=== PATIENT | female | born 1965 | race Caucasian/White ===

== ENCOUNTER 2016-06-04 11:18 | Inpatient (IN) ==
[2016-06-04] MEDS ORDERED: VANCOMYCIN 1 GM/NS 250 ML IV ONE (11:47)
--- NOTE | 2016-06-04 11:51 | PROVIDER DOCUMENTATION ---
HPI-Rash/Wound/ReCheck - General Chief Complaint: Sores/Lesions Stated Complaint: LEGS CELLULITIS Time Seen by Provider: 06/04/16 11:39 Source: patient Allergies/Adverse Reactions: Allergies Allergy/AdvReac Type Severity Reaction Status Date / Time No Known Allergies Allergy Verified 04/09/16 03:57 Home Medications: Home Medication List Medication Instructions Recorded Confirmed Last Taken Type Methadone 115 mg PO DAILY 12/14/15 04/09/16 04/08/16 09:00 History Cephalexin [Keflex] 500 mg PO TID #21 capsule 04/09/16 Unknown Rx - History of Present Illness-Dermatology Nature of Presenting Problem: patient is a 51 y/o F that presents to the ER with bilateral lower extremity swelling and wounds to legs. patient has history of same. Denies fever/chills, shortness of breath, or chest pain. Has drainage to left lateral ulcer Location: reports: lower extremity Quality: reports: painful Severity: reports: moderate Onset/Duration: reports: unsure Timing: reports: still present, constant Context/Associated Symptoms: reports: lesion, swelling/mass/lumps. denies: blisters, fever Locality of Occurance: Home Similar Symptoms Previously?: Yes Recently seen or treated by another doctor?: No Review of Systems - Adult - REVIEW OF SYSTEMS - ADULT Constitutional: denies: chills, fever Eyes: reports: no symptoms reported Ears, Nose, Mouth & Throat: reports: no symptoms reported Cardiovascular: reports: edema. denies: chest pain, orthopnea, syncope Respiratory: denies: cough, shortness of breath, wheezing Gastrointestinal: reports: no symptoms reported Genitourinary: reports: no symptoms reported Musculoskeletal: reports: no symptoms reported Integumentary: reports: skin sores/ulcer. denies: rash Neurological: reports: no symptoms reported Psychiatric: reports: no symptoms reported Endocrine: reports: no symptoms reported Hematologic/Lymphatic: reports: no symptoms reported Allergic/Immunologic: reports: no symptoms reported All Other Systems: Reviewed and Negative Past History - Adult - PAST MEDICAL HISTORY-ADULT Review of Records: reports: Old Records Reviewed, Nursing Assessment Review, Medications Reviewed Cardiovascular: reports: cardiac disease, CHF, HTN, PVD Musculoskeletal: reports: arthritis, chronic pain Endocrine/Immune: reports: Diabetes - PRIOR SURGERIES/PROCEDURES Surgical/Procedure History: reports: appendectomy, cholecystectomy, hysterectomy , hernia repair, gastric bypass - IMMUNIZATION STATUS Childhood Immunizations: See Nurse Assessment Flu Vaccine: See Nurse Assessment - FAMILY HISTORY Family History: reviewed, not pertinent - SOCIAL HISTORY Living Situation: family Physical Exam-General - PHYSICAL EXAM-ADULT Initial Vital Signs Reviewed: Yes - CONSTITUTIONAL General Appearance: alert, no apparent distress, obese - EYES Eyes: PERRL/EOMI, pink conjunctivae - HEAD, EARS, NOSE, MOUTH & THROAT HENMT: normocephalic/atraumatic, moist mucous membranes, normal ENT inspection - NECK Neck: full range of motion, normal inspection. negative: lymphadenopathy - RESPIRATORY Respiratory: lungs clear, normal breath sounds, no respiratory distress, no accessory muscle use - CARDIOVASCULAR Cardiovascular: regular rate, rhythm, no murmur - GASTROINTESTINAL (ABDOMEN) Abdominal Exam: normal bowel sounds, non tender, soft - MUSCULOSKELETAL Extremity: no calf tenderness, normal capillary refill, erythema (chronic), pedal edema (4 plus bilateral lower) - SKIN Integumentary: erythema (chronic bilateral lower extremities), other ( superficial ulcers to bilateral lower legs, left lateral is draining) - NEUROLOGIC Neurologic: grossly normal, no motor/sensory deficits - PSYCHIATRIC Psych/Mental Status: normal mood/affect, normal thought content, normal thought process, oriented x 3 Progress - PLAN OF CARE/RESULTS Progress/Plan/Lab Results: plan of care-labs Vital Signs Temp Pulse Resp BP Pulse Ox 06/04/16 11:24 98.4 F 64 18 140/68 100 No Known Allergies Allergy (Verified 04/09/16 03:57) Methadone 115 mg PO DAILY 12/14/15 Cephalexin [Keflex] 500 mg PO TID #21 capsule 04/09/16 Laboratory 06/04/16 06/04/16 06/04/16 12:05 12:05 12:05 WBC 6.32 RBC 3.63 L Hgb 9.8 L Hct 32.0 L MCV 88.2 MCH 27.0 MCHC 30.6 L RDW Std Deviation 14.9 H Plt Count 204 MPV 11.2 H Immature Gran % (Auto) 0.2 Neut % (Auto) 66.9 Lymph % (Auto) 23.3 Rabun % (Auto) 6.3 Eos % (Auto) 3.0 Baso % (Auto) 0.3 Immature Gran # (Auto) 0.01 Neut # (Auto) 4.23 Lymph # (Auto) 1.47 Rabun # (Auto) 0.40 Eos # (Auto) 0.19 Baso # (Auto) 0.02 Sodium 140 Potassium 3.3 L Chloride 99 Carbon Dioxide 28 Anion Gap 13 BUN 9 Creatinine 1.0 H Estimated GFR/1.73 m2 59 BUN/Creatinine Ratio 9 Glucose 108 H Calculated Osmolality 279 Calcium 9.1 Total Bilirubin 0.30 AST 14 ALT 11 Alkaline Phosphatase 124 H [id number] Pept 291 H Total Protein 8.1 Albumin 4.1 Globulin 4.0 Albumin/Globulin Ratio 1.0 Orders Category Date Time Status Saline Loc NOW Care 06/04/16 11:47 Active BLOOD CULTURE [BLDCUL] Stat Lab 06/04/16 11:47 Ordered CBC WITH DIFF [HEME] Stat Lab 06/04/16 12:05 Completed COMPREHENSIVE METABOLIC PANEL [CHEM] Stat Lab 06/04/16 12:05 Completed PRO B-NATRIURETIC PEPTIDE Stat Lab 06/04/16 12:05 Completed WOUND CULTURE INC GRAM STAIN [RM] Routine Lab 06/04/16 12:21 Ordered Vancomycin 1 gm/Ns 250 ml Med 06/04/16 11:47 Discontinued IV NOW - CONSULTS/PCP/HOSPITALIST Notification #1 *Consult/PCP/Hospitalist*: Janine (production support consultant hospitalist) Time Discussed: 13:05 Consult Disposition: Admit Departure - Departure Time of Disposition Order: 13:05 DIAGNOSIS: Cellulitis Qualifiers: Site of cellulitis: extremity Site of cellulitis of extremity: lower extremity Laterality: unspecified laterality Qualified Code(s): L03.119 - Cellulitis of unspecified part of limb Disposition: ADMITTED INPATIENT 09 Certified Medical Emergency: Emergent Condition: Stable Attestation - Scribe Verification/Attestation Scribe:: Jagdeep Allen Acting as Scribe for:: Nancy Wynne Scribe documention review:: This chart was documented by a scribe and accurately reflects the service the provider performed and the decisions made by the provider. Physician Attestation - Physician Attestation I, the provider, attest to the following statement:: Nancy Wynne Physician documentation Attestation:: This documentation recorded by the scribe accurately reflects the service I personally performed and the decisions made by me.
[2016-06-04 12:18] LABS: MANUAL DIFF NEEDED? NO
[2016-06-04 12:20] LABS: BASO% 0.3 % (0.0-0.8); EOS# 0.19 X1000 (0.0-0.7); HEMOGLOBIN 9.8 g/dL (12.0-16.0); IMM GRAN# 0.01 X1000 (0.0-0.04); IMM GRAN% 0.2 % (0.0-0.5); LYMPH# 1.47 X1000 (1.2-3.4); LYMPH% 23.3 % (20.5-51.1); MCHC 30.6 g/dL (33-37); MCV 88.2 FL (81-99); MONO% 6.3 % (1.7-9.3); MPV 11.2 FL (7.4-10.4); NEUT% 66.9 % (42.2-75.2); PLT 204 X1000 (130-400); RBC 3.63 XMIL (4.2-5.4)
[2016-06-04 12:43] LABS: ALBUMIN 4.1 g/dL (3.5-5.0); CALCIUM 9.1 mg/dL (8.8-10.2); POTASSIUM 3.3 mmol/L (3.5-5.1); TOTAL BILIRUBIN 0.3 mg/dL (0.20-1.00); TOTAL PROTEIN 8.1 g/dL (6.3-8.3)
[2016-06-04] MEDS ORDERED: TYLENOL PO PRN (15:26)
[2016-06-04] MEDS ORDERED: ZOFRAN IV PRN (15:26)
[2016-06-04] MEDS ORDERED: VANCOMYCIN IV PER PHARMACY MISC SCH (15:30)
--- NOTE | 2016-06-04 16:27 | HISTORY AND PHYSICAL ---
PRIMARY CARE PHYSICIAN: Dr. Vasquez. CHIEF COMPLAINT: Bilateral lower extremity swelling with increased redness and pain with drainage noted to the left ulcer. HISTORY OF PRESENTING ILLNESS: This is a 51-year-old female who presented to [facility] with complaints of bilateral lower extremity swelling and wounds to bilateral lower extremities. She states they have increased in swelling and pain. She is noted to have drainage to the left lateral ulcer, 4+ pitting edema, tenderness to touch, warmth to touch to bilateral lower extremities. Workup in the ER was essentially benign. She is being admitted for further evaluation and treatment. PAST MEDICAL HISTORY: Of lower extremity cellulitis, lower extremity edema, hypertension, peripheral vascular disease, diabetes type 2, chronic pain and CHF. PAST SURGICAL HISTORY: Of an appendectomy, cholecystectomy, hysterectomy, a hernia repair and gastric bypass. FAMILY HISTORY: Noncontributory. SOCIAL HISTORY: She currently lives with family. Denies any tobacco, alcohol, or illicit drug use. ALLERGIES: She has no known drug allergies. HOME MEDICATIONS: She takes Lasix 80 mg p.o. daily, hydroxyzine 10 mg p.o. q.6 hours p.r.n., methadone 115 mg p.o. daily, Zantac 150 mg p.o. daily. LABORATORY DATA: Showed a white blood cell count of 6.32, hemoglobin of 9.8, hematocrit 32, platelets 204,000. Sodium 140, potassium 3.31. Chloride 99, CO2 28, BUN of 9, creatinine 1.0, glucose 108. ProBNP of 291. REVIEW OF SYSTEMS: She denied any fever, chills, blurred vision, dizziness, chest pain, coughing, shortness of breath, constipation, diarrhea, burning or hurting with urination. She was positive for pain to bilateral lower extremities, increased edema, tenderness to touch. PHYSICAL EXAMINATION: On arrival. VITAL SIGNS: Temperature 98.4 degrees, pulse 64, respirations 18, blood pressure 140/68, saturating 100% on room air. GENERAL: This is a 51-year-old female lying in the bed, and answers questions appropriately. HEENT: Normocephalic and atraumatic. Pupils are equal, round, reactive to light. Extraocular movements are intact. Oropharynx and nares are clear. NECK: Supple. LUNGS: Clear to auscultation bilaterally with equal lung expansion and chest wall movement. HEART: With regular rate and rhythm. No murmurs, rubs, or gallops. ABDOMEN: Soft, nontender, nondistended. Bowel sounds are present x4 quadrants. EXTREMITIES: She is noted to have 4+ bilateral lower extremity edema. Erythema and tenderness to touch. Warmth to touch to the bilateral lower extremities. She is noted to have several areas of wounds most of which are scabbed over. She does have a left lateral ulcer that is draining. NEUROLOGICAL: The cranial nerves 2-12 are grossly intact. ASSESSMENT: 1. Bilateral lower extremity cellulitis. 2. Mild hypokalemia. 3. Diabetes type 2. 4. Hypertension. PLAN: She is being admitted to the medical unit at [facility]. Placed on pattern blood sugars with sliding scale insulin. Diabetic diet. We will consult wound care. Blood cultures x2 are pending. A wound culture was obtained in the ER and results are pending. Will place on vancomycin per pharmacy protocol and continue her home medications as previously identified. Zofran 4 mg IV q.4 hours p.r.n., Tylenol 650 p.o. q.4 hours p.r.n. We are going to give 40 mEq of potassium p.o. x1 today. Recheck CBC, BMP in the a.m. Dictated by JOSELITO Cantrell for Patrick Mejia MD
[2016-06-04] MEDS: HUMALOG SUBQ SCH ×2 (16:30→21:00)
[2016-06-04] MEDS ORDERED: NS 250 ML ONE (16:43)
[2016-06-04] MEDS: HYDROXYZINE PO PRN (17:05)
[2016-06-04] MEDS: VANCOMYCIN 1,500 MG in NS 250 ML IV ONE (17:05)
[2016-06-04] MEDS ORDERED: LASIX IV ONE (20:28)
[2016-06-04] MEDS ORDERED: METHADONE PO ONE (20:29)
[2016-06-05 05:49] LABS: MANUAL DIFF NEEDED? NO
[2016-06-05 05:57] LABS: BASO% 0.2 % (0.0-0.8); EOS# 0.15 X1000 (0.0-0.7); EOS% 3.3 % (0.0-10.0); HEMATOCRIT 30.8 % (37.0-47.0); HEMOGLOBIN 9.4 g/dL (12.0-16.0); LYMPH# 1.25 X1000 (1.2-3.4); LYMPH% 27.1 % (20.5-51.1); MCH 26.9 PG (27-31); MCHC 30.5 g/dL (33-37); MCV 88.3 FL (81-99); MONO# 0.47 X1000 (0.11-0.59); MONO% 10.2 % (1.7-9.3); MPV 11.6 FL (7.4-10.4); NEUT% 59.2 % (42.2-75.2); PLT 176 X1000 (130-400); RBC 3.49 XMIL (4.2-5.4)
[2016-06-05] MEDS: HUMALOG SUBQ SCH (06:10)
[2016-06-05 06:14] LABS: AGAP 6; BUN 8 mg/dL (8-22); CALCIUM 8.5 mg/dL (8.8-10.2); CHLORIDE 104 mmol/L (98-107); COSMO 281; POTASSIUM 3.3 mmol/L (3.5-5.1); SODIUM 141 mmol/L (136-145); TCO2 31 mmol/L (25-35)
[2016-06-05] MEDS: LASIX IV SCH ×3 (08:45→22:30)
[2016-06-05] MEDS: ROCEPHIN 1 GM/NS 50 ML IV SCH ×2 (08:45→10:43)
[2016-06-05] MEDS: ZANTAC PO SCH (08:45)
[2016-06-05] MEDS: METHADONE PO SCH (08:45)
[2016-06-05] MEDS ORDERED: LASIX PO SCH (09:00)
--- NOTE | 2016-06-05 09:07 | PROGRESS NOTE ---
DATE: 06/05/2016 SUBJECTIVE: The patient notes she is feeling a little bit better this morning. She had a dose of Lasix last night and has had a tremendous decrease in the swelling in her lower extremities. Denies any chest pain, palpitations. OBJECTIVE: Vital Signs: Temperature 97, Pulse 56, respiratory 18, BP 89/37 to 112/58, saturation 97% on room air. General: Patient is well developed, well nourished. She is currently in no real respiratory distress. She is awake, alert. Neck: Supple. CV: Regular rate. Chest: Relatively clear. Abdomen: Soft. Extremities: Moves all extremities. She is actually noted to have a little bit less edema in the right lower extremity with wrinkling of her skin. She has a 6 cm ring around both lower extremities that is erythematous, warm to the touch. No pus, no drainage currently. ASSESSMENT: 1. Bilateral lower extremity cellulitis. 2. Bilateral lower extremity 3+ nonpitting edema. 3. Mild hypokalemia. 4. Diabetes type 2. 5. Hypertension. 6. Obesity. 7. Gram-positive cocci on skin culture. PLAN: We will continue patient on vancomycin and Rocephin until her cultures return. We will continue IV Lasix 40 mg IV twice a day x4 doses. We will continue to follow her kidney, liver function. Continue her home medications. Further orders as needed.
[2016-06-05] MEDS: HUMALOG DOSE (PARKWAY) SUBQ SCH ×3 (11:02→20:55)
[2016-06-05] MEDS: HYDROXYZINE PO PRN ×2 (11:41→19:59)
[2016-06-05] MEDS: VANCOMYCIN 2,500 MG in NS 500 ML IV SCH (16:01)
[2016-06-06] MEDS: HYDROXYZINE PO PRN ×3 (00:44→21:56)
[2016-06-06 06:13] LABS: HEMATOCRIT 30.9 % (37.0-47.0); HEMOGLOBIN 9.2 g/dL (12.0-16.0); MCH 26.4 PG (27-31); MCHC 29.8 g/dL (33-37); MCV 88.8 FL (81-99); MPV 11.6 FL (7.4-10.4); RBC 3.48 XMIL (4.2-5.4)
[2016-06-06] MEDS: HUMALOG DOSE (PARKWAY) SUBQ SCH ×4 (06:25→21:57)
[2016-06-06 06:32] LABS: ALBUMIN 3.2 g/dL (3.5-5.0); CALCIUM 8.4 mg/dL (8.8-10.2); POTASSIUM 3.5 mmol/L (3.5-5.1); TOTAL BILIRUBIN 0.2 mg/dL (0.20-1.00); TOTAL PROTEIN 6.2 g/dL (6.3-8.3)
[2016-06-06] MEDS: ZANTAC PO SCH (08:55)
[2016-06-06] MEDS: METHADONE PO SCH (08:55)
[2016-06-06] MEDS: ROCEPHIN 1 GM/NS 50 ML IV SCH (11:14)
[2016-06-06] MEDS: LASIX IV SCH ×2 (11:59→22:45)
--- NOTE | 2016-06-06 14:11 | PROGRESS NOTE ---
DATE: 06/06/2016 SUBJECTIVE: Patient notes that she is feeling better today. She is having continued good urine output. She is having decreased swelling in her lower extremities. She denies any chest pain, palpitations. Does states that her pain medicine does not work very well at times. I would like to split her methadone up to twice a day. PHYSICAL: Vital signs: Temperature 98, pulse 64, respiratory 22, BP 86/34 to 100/44. General: Patient is awake, alert. She is in no distress. She is awake, pleasant to talk with. Speech is regular. Memory is intact. HEENT: Normocephalic, atraumatic. YENNI. Neck: Supple. CV: Regular rate. Chest: Relatively clear. Extremities: She has got decreased edema bilateral lower extremities, decreased erythema. She actually now has wrinkles in her skin. Good pulses bilaterally. DATA: CBC, CMP normal. Gram-positive cocci on wound culture. ASSESSMENT: 1. Bilateral lower extremity cellulitis with gram-positive cocci. 2. Mild hypokalemia resolved, potassium 3.5. 3. Diabetes type 2. Blood sugars are great at 109. 4. Bilateral lower extremity edema. Will continue Lasix IV for now. Continue to follow her kidney function. 5. Hypertension stable. PLAN: Will split her methadone into a.m. and p.m. doses and continue to follow. Further orders as needed.
[2016-06-06] MEDS: VANCOMYCIN 2,500 MG in NS 500 ML IV SCH (15:56)
[2016-06-06] MEDS ORDERED: METHADONE PO SCH (21:00)
[2016-06-07 06:22] LABS: HEMATOCRIT 31.6 % (37.0-47.0); HEMOGLOBIN 9.6 g/dL (12.0-16.0); MCHC 30.4 g/dL (33-37); MCV 88.8 FL (81-99); MPV 11.2 FL (7.4-10.4); RBC 3.56 XMIL (4.2-5.4)
[2016-06-07] MEDS: HUMALOG DOSE (PARKWAY) SUBQ SCH ×4 (06:24→22:01)
[2016-06-07 06:47] LABS: ALBUMIN 3.4 g/dL (3.5-5.0); CALCIUM 8.6 mg/dL (8.8-10.2); POTASSIUM 3.2 mmol/L (3.5-5.1); TOTAL BILIRUBIN 0.2 mg/dL (0.20-1.00); TOTAL PROTEIN 6.4 g/dL (6.3-8.3)
[2016-06-07] MEDS ORDERED: METHADONE PO SCH ×2 (08:28)
[2016-06-07] MEDS: ZANTAC PO SCH (08:57)
[2016-06-07] MEDS ORDERED: KLOR-CON PO ONE (10:21)
[2016-06-07] MEDS: HYDROXYZINE PO PRN ×3 (10:56→23:59)
--- NOTE | 2016-06-07 10:57 | PROGRESS NOTE ---
DATE: 06/07/2016 SUBJECTIVE: The patient notes that she is feeling much better. She is having much less pain in her lower extremities. She actually has wrinkles again. Denies any chest pains or palpitations. Denies any fevers or chills. PHYSICAL EXAMINATION: Vital Signs: Temperature 98 degrees, pulse 42, respiratory rate 20, blood pressure 102/47 to 93/34. General: Patient is a well-developed, overweight female who currently is in no respiratory distress. She is awake and alert. Neck: Supple. Cardiovascular: Regular rate. Chest: Relatively clear. Abdomen: Soft. Extremities: Moves all extremities. She is noted to have decreased erythema greatly in bilateral lower extremities. She is having decreased swelling. She has now nonpitting edema, which is an improvement. Unfortunately, she is having issues with her IV. LABORATORIES: CBC and CMP essentially normal. Potassium 3.2. ASSESSMENT: 1. Staphylococcus aureus wound culture, bilateral lower extremities. 2. Hypokalemia. 3. Diabetes, type 2. 4. Hypertension. PLAN: We will change the patient to clindamycin, as her IV has infiltrated. We will replace her potassium. We will continue on Lasix, although we will change this also to p.o. We will give her another 40 of Lasix p.o. tonight x1 dose. We will continue to follow. Hopefully, home in 1-2 days.
[2016-06-07] MEDS: CLEOCIN PO SCH ×2 (13:07→17:35)
[2016-06-07] MEDS ORDERED: LASIX PO ONE (18:00)
[2016-06-08] MEDS: HYDROXYZINE PO PRN (04:51)
[2016-06-08] MEDS: HUMALOG DOSE (PARKWAY) SUBQ SCH (06:10)
[2016-06-08 08:20] VITALS: BP 101/55
[2016-06-08] MEDS ORDERED: METHADONE PO SCH (09:00)
[2016-06-08] MEDS: CLEOCIN PO SCH (10:19)
[2016-06-08] MEDS: ZANTAC PO SCH (10:19)
--- NOTE | 2016-06-09 07:06 | DISCHARGE SUMMARY ---
ADMISSION DATE: 06/04/2016 DISCHARGE DATE: 06/08/2016 DISCHARGE DIAGNOSES: 1. Bilateral lower extremity cellulitis with methicillin-resistant Staphylococcus aureus sensitive to clindamycin. 2. Mild hypokalemia resolved. 3. Diabetes type 2. Stable. 4. Hypertension stable. 5. Chronic lower extremity edema improved. 6. Unilateral kidney. 7. History of gastric bypass. 8. Known peripheral vascular disease. 9. Congestive heart failure. CONSULTATIONS: None. PROCEDURES: None. BRIEF HOSPITAL COURSE: Patient is a 51-year-old patient of Dr. Vasquez. He presented to the emergency department with increased swelling and the erythema of her bilateral lower extremities. She had a weeping ulcer on her left lower extremity with some drainage. This was cultured and grew methicillin-resistant Staphylococcus aureus which was highly sensitive to clindamycin, vancomycin, and moderately sensitive to Bactrim. She was placed on vancomycin for the hospital course as well as IV Lasix. On discharge, she is tremendously better. Her drainage has dried up. She actually now has wrinkles on her bilateral lower extremities. She notes the pain is gone, she is able to ambulate much better. DISCHARGE: Discussed with patient Mariano chilel. Although she declined, she states that this makes her claustrophobic. Discussed with her that she also will likely need to have compression stockings as an outpatient to try to prevent this from coming back. However, I would not start compression stockings currently until this wound has healed. We will continue on clindamycin for a total of 10 days. Discussed her that she either needs probiotics or Activia Yogurt. She needs to follow with Dr. Vasquez in 1-2 weeks to reevaluate. We will go back to her home Lasix dose of 80 a.m. She will continue to take her home methadone at 1:15. No other changes. TIME SPENT: 35 minutes was spent in discharge planning and instructions.
== END 2016-06-08 13:15 | disposition home or self-care (01) | DRG 603 ==
LOC: P.ED 11:18 → P.MEDSURG 13:26
PROVIDERS: ATTEND Family Medicine
DX: L03.116 Cellulitis of left lower limb (principal); E11.51 Type 2 diabetes mellitus with diabetic peripheral angiopathy without gangrene; I11.0 Hypertensive heart disease with heart failure; I50.9 Heart failure, unspecified; Q60.0 Renal agenesis, unilateral; Z68.41 Body mass index [BMI] 40.0-44.9, adult; L97.929 Non-pressure chronic ulcer of unspecified part of left lower leg with unspecified severity; L97.919 Non-pressure chronic ulcer of unspecified part of right lower leg with unspecified severity; E11.622 Type 2 diabetes mellitus with other skin ulcer; B95.62 Methicillin resistant Staphylococcus aureus infection as the cause of diseases classified elsewhere; L03.115 Cellulitis of right lower limb; G89.29 Other chronic pain; Z98.84 Bariatric surgery status; E87.6 Hypokalemia; E66.9 Obesity, unspecified; Z79.899 Other long term (current) drug therapy; Z79.891 Long term (current) use of opiate analgesic
CPT/HCPCS: 80048; 80053; 82948; 83880; 85025; 85027; 87040; 87070; 87077; 87186; 96365; J0696; J1815; J1940; J3370; J7040; J7050; S0109